=== PATIENT | female | born 2000 | race Caucasian/White ===

== ENCOUNTER 2021-03-10 13:11 | Outpatient (CLI) | payer OTHER | END 2021-03-10 16:54 | disposition home or self-care (01) | LOC: GENOP 13:11 | DX: O99.891 Other specified diseases and conditions complicating pregnancy (principal); R10.9 Unspecified abdominal pain; Z3A.33 33 weeks gestation of pregnancy | CPT/HCPCS: 82731; G0463 ==

== ENCOUNTER 2021-04-18 17:07 | Inpatient (IN) | payer OTHER ==
[~2021-04-18] VITALS: Ht 160 cm; Wt 116.1 kg
[2021-04-18 18:49] LABS: HEMOGLOBIN 10.6 gm/dl (12.3-15.3); RED BLOOD COUNT 3.75 M/UL (4.00-5.10)
[2021-04-18 19:10] LABS: BUN/CREATININE RATIO 21 (0-10)
[2021-04-20] MEDS ORDERED: PERCOCET 5/325 T1 EA PO (17:53)
[2021-04-20] MEDS ORDERED: IBUPROFEN800 MG PO (17:53)
[2021-04-20] MEDS ORDERED: HEMATOGEN SOFT1 EAC1 PO (17:53)
[2021-04-20] MEDS ORDERED: COLACE100 MG PO (17:53)
[2021-04-21 06:22] LABS: HEMOGLOBIN 5.7 gm/dl (12.3-15.3)
[2021-04-21 16:06] LABS: WHITE BLOOD COUNT 11.3 K/UL (4.5-11.0)
[2021-04-21 16:07] LABS: RED BLOOD COUNT 2.29 M/UL (4.00-5.10)
[2021-04-21 16:08] LABS: HEMOGLOBIN 6.5 gm/dl (12.3-15.3)
[2021-04-22 06:12] LABS: WHITE BLOOD COUNT 9.3 K/UL (4.5-11.0)
[2021-04-22 06:17] LABS: HEMOGLOBIN 8.5 gm/dl (12.3-15.3); RED BLOOD COUNT 2.94 M/UL (4.00-5.10)
== END 2021-04-22 16:35 | disposition home or self-care (01) | DRG 787 ==
LOC: GENOP 17:07 → OB 17:35
PROVIDERS: Internal Medicine Pulmonary Disease; Obstetrics & Gynecology; ADMIT Obstetrics & Gynecology
PROC: 10D00Z1 Extraction of Products of Conception, Low, Open Approach (ICD-10-PCS; principal; 2021-04-18)
PROC: 0U7C7ZZ Dilation of Cervix, Via Natural or Artificial Opening (ICD-10-PCS; 2021-04-18)
PROC: 3E033VJ Introduction of Other Hormone into Peripheral Vein, Percutaneous Approach (ICD-10-PCS; 2021-04-18)
PROC: 4A1HXCZ Monitoring of Products of Conception, Cardiac Rate, External Approach (ICD-10-PCS; 2021-04-20)
DX: O13.4 Gestational [pregnancy-induced] hypertension without significant proteinuria, complicating childbirth (principal); D62 Acute posthemorrhagic anemia; Z3A.39 39 weeks gestation of pregnancy; Z37.0 Single live birth; O62.1 Secondary uterine inertia
CPT/HCPCS: 36415; 36430; 80053; 81001; 82570; 84156; 84550; 85014; 85018; 85025; 85027; 86850; 86900; 86901; 86920; 90715; C9113; J0690; J1885; J2001; J2210; J2250; J2274; J2370; J2405; J2550; J2590; J2795; J3010; J7040; J7120; P9016; U0002